=== PATIENT | female | born 1970 | race Caucasian/White ===

== ENCOUNTER 2018-01-28 19:27 | Inpatient (IN) | payer MEDICARE, MEDICAID ==
[~2018-01-28] VITALS: Ht 160 cm; Wt 85.0 kg
[2018-01-28] MEDS ORDERED: cloNIDine 0.2 mg/24hr 7DAY PATCH TD ONE (21:45)
[2018-01-28] MEDS ORDERED: ONDANSETRON HCL 4 MG/2 ML VIAL IV ONE (21:45)
[2018-01-28] MEDS ORDERED: FAMOTIDINE (10MG/ML) 2ML VL IV ONE (21:45)
[2018-01-28 21:58] LABS: INR 3.12 (0.9-1.15); Prothrombin Time 31.3 sec (9.27-12.13)
[2018-01-28] MEDS ORDERED: cloNIDine HCL 0.1 MG TAB PO ONE (22:00)
[2018-01-28 22:42] LABS: Calcium 8.5 mg/dL (8.5-10.1)
[2018-01-28 22:56] LABS: Basophils # (auto) 0.1 uL; Basophils % (auto) 0.7 % (0.0-2.0); Eosinophils # (auto) 0.1 uL; Eosinophils % (auto) 1.5 % (0.0-7.0); Hematocrit 35.3 % (36.0-46.0); Hemoglobin 12.1 g/dL (12.2-16.2); Lymphocytes # (auto) 1.4 uL; Lymphocytes % (auto) 13.9 % (10.0-50.0); Mean Corpuscular Hgb Conc. 34.3 g/dL (32.0-36.0); Mean Corpuscular Volume 90.4 fL (80.0-100.0); Monocytes # (auto) 0.7 uL; Monocytes % (auto) 7.2 % (0.0-12.0); Neutrophils # (auto) 7.8 uL; Neutrophils % (auto) 76.7 % (37.0-80.0); Nucleated Red Blood Cells % 0.1 %; Platelet Count (auto) 358 10^3/uL (140-450); Red Cell Distribution Width 14.7 % (11.8-14.3); White Blood Cell 10.1 10^3/uL (4.4-10.8)
[2018-01-28 23:03] LABS: Albumin 3.2 g/dL (3.4-5.0); Bilirubin, Total 0.6 mg/dL (0.2-1.0); Total Protein 7.2 g/dL (6.4-8.2)
[2018-01-29] VITALS (7 sets, daily range): BP systolic 126–152; BP diastolic 68–96
[2018-01-29] MEDS ORDERED: DEXTROSE (50%) 50ML SYRG IV PRN (02:45)
[2018-01-29] MEDS ORDERED: TEMAZEPAM 15 MG CAP PO PRN (03:00)
[2018-01-29 03:25] LABS: Urine Bacteria FEW /hpf (None Seen); Urine Blood TRACE /uL (Negative); Urine Specific Gravity 1.008 (1.001-1.035); Urine WBC 2 /hpf (0 - 5)
[2018-01-29] MEDS: InsuLIN REG 1unit/0.01ml Soln (100units/ml) SC SCH ×4 (06:00→23:50)
[2018-01-29] MEDS: ACCU-CHEK COMFORT CURVE STRIP VI SCH ×4 (06:10→23:36)
[2018-01-29] MEDS: PANTOPRAZOLE 40 MG TAB PO SCH (08:54)
[2018-01-29] MEDS ORDERED: WARFARIN SODIUM 2 MG TAB PO ONE (17:00)
[2018-01-29] MEDS: HYDROcodone-ACET 5/325MG TAB PO PRN (19:59)
[2018-01-29] MEDS: ONDANSETRON HCL 4 MG/2 ML VIAL IV PRN (23:37)
[2018-01-29] MEDS: cloNIDine HCL 0.1 MG TAB PO PRN (23:37)
[2018-01-30 05:44] VITALS: BP 124/69
[2018-01-30] MEDS: InsuLIN REG 1unit/0.01ml Soln (100units/ml) SC SCH ×4 (06:00→23:49)
[2018-01-30] MEDS: ACCU-CHEK COMFORT CURVE STRIP VI SCH ×4 (06:03→23:48)
[2018-01-30] MEDS: PANTOPRAZOLE 40 MG TAB PO SCH (06:18)
[2018-01-30] MEDS ORDERED: CLO01T PO (06:28)
[2018-01-30] MEDS ORDERED: AMLO10TA2 PO (06:28)
[2018-01-30] MEDS ORDERED: ATE50T PO (06:28)
[2018-01-30] MEDS ORDERED: WARF5TAB71 PO (06:28)
[2018-01-30] MEDS ORDERED: GEMF600T3 PO (06:28)
[2018-01-30] MEDS ORDERED: TRAM50TA2 PO (06:28)
[2018-01-30] MEDS ORDERED: LOSA100T27 PO (06:28)
[2018-01-30 06:43] LABS: Basophils # (auto) 0 uL; Basophils % (auto) 0.5 % (0.0-2.0); Eosinophils # (auto) 0.1 uL; Eosinophils % (auto) 1.5 % (0.0-7.0); Hematocrit 33.7 % (36.0-46.0); Hemoglobin 11.5 g/dL (12.2-16.2); Lymphocytes # (auto) 1.6 uL; Lymphocytes % (auto) 18.6 % (10.0-50.0); Mean Corpuscular Hemoglobin 30.5 pg (28.0-32.0); Mean Corpuscular Hgb Conc. 34.3 g/dL (32.0-36.0); Mean Corpuscular Volume 89.2 fL (80.0-100.0); Monocytes # (auto) 0.7 uL; Monocytes % (auto) 8.2 % (0.0-12.0); Neutrophils # (auto) 6.2 uL; Neutrophils % (auto) 71.2 % (37.0-80.0); Nucleated Red Blood Cells % 0.1 %; Platelet Count (auto) 308 10^3/uL (140-450); Red Blood Cells 3.77 10^6/uL (4.0-5.20); Red Cell Distribution Width 14.6 % (11.8-14.3); White Blood Cell 8.8 10^3/uL (4.4-10.8)
[2018-01-30 06:49] LABS: INR 1.61 (0.9-1.15); Prothrombin Time 16.8 sec (9.27-12.13)
[2018-01-30 07:14] LABS: BUN/Creatinine Ratio 7.4; Bilirubin, Total 1.7 mg/dL (0.2-1.0); Potassium 3.6 mmol/L (3.5-5.1); Total Protein 6.9 g/dL (6.4-8.2)
[2018-01-30 08:00] VITALS: BP 143/86
[2018-01-30 08:41] VITALS: BP 134/81
[2018-01-30] MEDS: ONDANSETRON HCL 4 MG/2 ML VIAL IV PRN (08:49)
[2018-01-30 12:37] VITALS: BP 128/76
[2018-01-30 17:00] VITALS: BP 150/78
[2018-01-30] MEDS ORDERED: WARFARIN SODIUM 2 MG TAB PO ONE (17:00)
[2018-01-30] MEDS: ACETAMINOPHEN 325 MG TAB PO PRN (19:39)
[2018-01-30 21:51] VITALS: BP 137/67
[2018-01-31 05:00] VITALS: BP 142/74
[2018-01-31] MEDS: InsuLIN REG 1unit/0.01ml Soln (100units/ml) SC SCH ×4 (06:00→23:32)
[2018-01-31] MEDS: ACCU-CHEK COMFORT CURVE STRIP VI SCH ×4 (06:08→23:31)
[2018-01-31] MEDS: PANTOPRAZOLE 40 MG TAB PO SCH (06:09)
[2018-01-31 07:20] LABS: INR 1.22 (0.9-1.15); Prothrombin Time 12.9 sec (9.27-12.13)
[2018-01-31 07:29] LABS: BUN/Creatinine Ratio 8.6; Calcium 8.6 mg/dL (8.5-10.1); Potassium 3.4 mmol/L (3.5-5.1)
[2018-01-31 07:47] LABS: Basophils # (auto) 0 uL; Basophils % (auto) 0.6 % (0.0-2.0); Eosinophils # (auto) 0.2 uL; Eosinophils % (auto) 2.8 % (0.0-7.0); Hematocrit 33.6 % (36.0-46.0); Hemoglobin 11.6 g/dL (12.2-16.2); Lymphocytes # (auto) 1.8 uL; Lymphocytes % (auto) 23.6 % (10.0-50.0); Mean Corpuscular Hemoglobin 31.2 pg (28.0-32.0); Mean Corpuscular Hgb Conc. 34.6 g/dL (32.0-36.0); Mean Corpuscular Volume 90.2 fL (80.0-100.0); Monocytes # (auto) 0.7 uL; Monocytes % (auto) 9.3 % (0.0-12.0); Neutrophils % (auto) 63.7 % (37.0-80.0); Nucleated Red Blood Cells % 0.1 %; Platelet Count (auto) 314 10^3/uL (140-450); Red Blood Cells 3.73 10^6/uL (4.0-5.20); Red Cell Distribution Width 14.2 % (11.8-14.3); White Blood Cell 7.9 10^3/uL (4.4-10.8)
[2018-01-31 08:00] VITALS: BP 143/86
[2018-01-31 09:00] VITALS: BP 162/75
[2018-01-31 13:00] VITALS: BP 152/94
[2018-01-31] MEDS: HYDROcodone-ACET 5/325MG TAB PO PRN (13:03)
[2018-01-31] MEDS ORDERED: LOSARTAN POTASSIUM 50 MG TAB PO ONE (14:00)
[2018-01-31] MEDS ORDERED: amLODIPine BESYLATE 5 MG TAB PO ONE (14:00)
[2018-01-31 17:00] VITALS: BP 154/80
[2018-01-31] MEDS ORDERED: WARFARIN SODIUM 5 MG TAB PO ONE (17:00)
[2018-01-31 18:49] LABS: Hepatitis C Antibody Negative (Negative)
[2018-01-31 18:50] LABS: Hepatitis B Surface Antigen Negative (Negative)
[2018-01-31] MEDS: cloNIDine HCL 0.1 MG TAB PO PRN (22:13)
[2018-02-01] VITALS (7 sets, daily range): BP systolic 121–156; BP diastolic 67–87
[2018-02-01] MEDS: ACCU-CHEK COMFORT CURVE STRIP VI SCH ×4 (05:36→23:25)
[2018-02-01] MEDS: InsuLIN REG 1unit/0.01ml Soln (100units/ml) SC SCH ×4 (05:37→23:25)
[2018-02-01 07:18] LABS: INR 1.25 (0.9-1.15); Prothrombin Time 13.2 sec (9.27-12.13)
[2018-02-01 07:23] LABS: Basophils # (auto) 0 uL; Basophils % (auto) 0.5 % (0.0-2.0); Eosinophils # (auto) 0.2 uL; Eosinophils % (auto) 2.6 % (0.0-7.0); Hematocrit 33.5 % (36.0-46.0); Hemoglobin 11.4 g/dL (12.2-16.2); Lymphocytes % (auto) 23.3 % (10.0-50.0); Mean Corpuscular Hemoglobin 30.8 pg (28.0-32.0); Mean Corpuscular Hgb Conc. 34.1 g/dL (32.0-36.0); Mean Corpuscular Volume 90.3 fL (80.0-100.0); Monocytes # (auto) 0.7 uL; Monocytes % (auto) 8.2 % (0.0-12.0); Neutrophils # (auto) 5.7 uL; Neutrophils % (auto) 65.4 % (37.0-80.0); Platelet Count (auto) 314 10^3/uL (140-450); Red Blood Cells 3.71 10^6/uL (4.0-5.20); Red Cell Distribution Width 14.3 % (11.8-14.3); White Blood Cell 8.7 10^3/uL (4.4-10.8)
[2018-02-01 07:37] LABS: Anion Gap 9 (5-15); BUN/Creatinine Ratio 9.4; Blood Urea Nitrogen 35 mg/dL (7-18); Calcium 8.4 mg/dL (8.5-10.1); Carbon Dioxide 24 mmol/L (21-32); Chloride 106 mmol/L (98-107); Cholesterol 245 mg/dL (< 200); GFR African American 17 mL/min; GFR Non-African American 14 mL/min; Glucose 127 mg/dL (74-106); HDL Cholesterol 31 mg/dL (40-59); Magnesium 2.6 mg/dL (1.6-2.6); Potassium 3.5 mmol/L (3.5-5.1); Sodium 139 mmol/L (136-145); Triglycerides 406 mg/dL (< 150)
[2018-02-01] MEDS: PANTOPRAZOLE 40 MG TAB PO SCH (08:27)
[2018-02-01] MEDS: cloNIDine HCL 0.1 MG TAB PO SCH (09:47)
[2018-02-01] MEDS: LOSARTAN POTASSIUM 50 MG TAB PO SCH (09:47)
[2018-02-01] MEDS: amLODIPine BESYLATE 5 MG TAB PO SCH (09:48)
[2018-02-01] MEDS ORDERED: HYDROcodone-ACET 5/325MG TAB PO PRN (10:00)
[2018-02-01] MEDS ORDERED: SODIUM CHL 0.9% 1000 ML BAG XX ONE (10:00)
[2018-02-01] MEDS ORDERED: WARFARIN SODIUM 2.5 MG TAB PO ONE (17:00)
[2018-02-01] MEDS: ACETAMINOPHEN 325 MG TAB PO PRN (21:02)
[2018-02-01] MEDS ORDERED: ATORVASTATIN 20 MG TAB PO SCH (22:00)
[2018-02-02] MEDS: cloNIDine HCL 0.1 MG TAB PO PRN (04:01)
[2018-02-02 05:17] VITALS: BP 157/78
[2018-02-02] MEDS: InsuLIN REG 1unit/0.01ml Soln (100units/ml) SC SCH ×2 (06:00→12:04)
[2018-02-02] MEDS: ACCU-CHEK COMFORT CURVE STRIP VI SCH ×2 (06:10→12:04)
[2018-02-02] MEDS: PANTOPRAZOLE 40 MG TAB PO SCH (06:52)
[2018-02-02 07:11] LABS: Basophils # (auto) 0 uL; Basophils % (auto) 0.5 % (0.0-2.0); Eosinophils # (auto) 0.2 uL; Eosinophils % (auto) 1.8 % (0.0-7.0); Hematocrit 34.7 % (36.0-46.0); Hemoglobin 11.9 g/dL (12.2-16.2); Lymphocytes # (auto) 1.8 uL; Lymphocytes % (auto) 19.7 % (10.0-50.0); Mean Corpuscular Hemoglobin 31.4 pg (28.0-32.0); Mean Corpuscular Hgb Conc. 34.4 g/dL (32.0-36.0); Mean Corpuscular Volume 91.2 fL (80.0-100.0); Monocytes # (auto) 0.8 uL; Monocytes % (auto) 8.2 % (0.0-12.0); Neutrophils # (auto) 6.4 uL; Neutrophils % (auto) 69.8 % (37.0-80.0); Nucleated Red Blood Cells % 0.1 %; Platelet Count (auto) 302 10^3/uL (140-450); Red Cell Distribution Width 14.6 % (11.8-14.3); White Blood Cell 9.2 10^3/uL (4.4-10.8)
[2018-02-02 07:14] LABS: INR 1.33 (0.9-1.15); Partial Thromboplastin Time 33.1 sec (23.78-33.04)
[2018-02-02 08:00] VITALS: BP 113/61
[2018-02-02 08:49] VITALS: BP 118/56
[2018-02-02] MEDS: amLODIPine BESYLATE 5 MG TAB PO SCH (08:55)
[2018-02-02] MEDS: LOSARTAN POTASSIUM 50 MG TAB PO SCH (10:00)
[2018-02-02] MEDS: cloNIDine HCL 0.1 MG TAB PO SCH (10:00)
[2018-02-02] MEDS ORDERED: TRAM50TA2 PO (10:41)
[2018-02-02 11:09] VITALS: BP 118/54
[2018-02-02 12:09] VITALS: BP 131/73
[2018-02-02] MEDS ORDERED: WARFARIN SODIUM 10 MG TAB PO ONE (17:00)
== END 2018-02-02 13:30 | disposition home or self-care (01) | DRG 682 ==
LOC: ER 19:27 → OVERFLOW 19:28 → EAST 01-29 04:00
PROVIDERS: ADMIT Nurse Practitioner; ATTEND Internal Medicine
PROC: 5A1D70Z Performance of Urinary Filtration, Intermittent, Less than 6 Hours Per Day (ICD-10-PCS; principal; 2018-01-29)
PROC: 5A1D70Z Performance of Urinary Filtration, Intermittent, Less than 6 Hours Per Day (ICD-10-PCS; 2018-02-01)
DX: I12.0 Hypertensive chronic kidney disease with stage 5 chronic kidney disease or end stage renal disease (principal); N18.6 End stage renal disease; E87.2 Acidosis; E11.65 Type 2 diabetes mellitus with hyperglycemia; D63.8 Anemia in other chronic diseases classified elsewhere; E11.22 Type 2 diabetes mellitus with diabetic chronic kidney disease; I25.10 Atherosclerotic heart disease of native coronary artery without angina pectoris; N20.0 Calculus of kidney; E66.9 Obesity, unspecified; Z82.49 Family history of ischemic heart disease and other diseases of the circulatory system; Z83.3 Family history of diabetes mellitus; Z86.711 Personal history of pulmonary embolism; Z90.49 Acquired absence of other specified parts of digestive tract; Z99.2 Dependence on renal dialysis; Z68.33 Body mass index [BMI] 33.0-33.9, adult; Z88.8 Allergy status to other drugs, medicaments and biological substances; Z95.828 Presence of other vascular implants and grafts; Z80.9 Family history of malignant neoplasm, unspecified
CPT/HCPCS: 36415; 71045; 74176; 80048; 80053; 80061; 81001; 82150; 82962; 83036; 83690; 83735; 83880; 85025; 85610; 85730; 86803; 87340; 90935; 93005; 94761; 96374; 96375; J1815; J2405; J3490

== ENCOUNTER 2018-02-22 05:23 | Inpatient (IN) | payer MEDICARE, MEDICAID ==
[~2018-02-22] VITALS: Ht 160 cm; Wt 83.9 kg
[~2018-02-22 05:23] MED LIST: AMLO10TA2 PO; ATE50T PO; CLO01T PO; GEMF600T3 PO; LOSA100T27 PO; TRAM50TA2 PO; WARF5TAB71 PO
[2018-02-22 11:09] LABS: Basophils # (auto) 0.1 uL; Basophils % (auto) 0.8 % (0.0-2.0); Eosinophils # (auto) 0.2 uL; Hematocrit 38.7 % (36.0-46.0); Hemoglobin 13.4 g/dL (12.2-16.2); Lymphocytes # (auto) 1.7 uL; Lymphocytes % (auto) 20.4 % (10.0-50.0); Mean Corpuscular Hemoglobin 31.3 pg (28.0-32.0); Mean Corpuscular Hgb Conc. 34.5 g/dL (32.0-36.0); Mean Corpuscular Volume 90.7 fL (80.0-100.0); Monocytes # (auto) 0.8 uL; Neutrophils # (auto) 5.5 uL; Neutrophils % (auto) 66.8 % (37.0-80.0); Nucleated Red Blood Cells % 0.1 %; Platelet Count (auto) 409 10^3/uL (140-450); Red Blood Cells 4.26 10^6/uL (4.0-5.20); Red Cell Distribution Width 14.3 % (11.8-14.3); White Blood Cell 8.2 10^3/uL (4.4-10.8)
[2018-02-22 11:29] LABS: Partial Thromboplastin Time 63.2 sec (23.78-33.04); Prothrombin Time 49.3 sec (9.27-12.13)
[2018-02-22 11:33] LABS: INR 5.05 (0.9-1.15)
[2018-02-22 11:36] LABS: Albumin 3.9 g/dL (3.4-5.0); BUN/Creatinine Ratio 5.3; Calcium 9.1 mg/dL (8.5-10.1); Potassium 4.5 mmol/L (3.5-5.1); Total Protein 8.4 g/dL (6.4-8.2)
[2018-02-22] MEDS ORDERED: DEXTROSE (50%) 50ML SYRG IV PRN (14:30)
[2018-02-22] MEDS ORDERED: MORPHINE SULF INJ 2 MG/ML SYRINGE 1ML IV PRN (14:30)
[2018-02-22] MEDS ORDERED: AZELASTINE 0.1% NASAL SPRAY PRN (14:30)
[2018-02-22] MEDS ORDERED: ACETAMINOPHEN 325 MG TAB PO PRN (14:30)
[2018-02-22] MEDS ORDERED: ONDANSETRON HCL 4 MG/2 ML VIAL IV PRN (14:30)
[2018-02-22] MEDS ORDERED: cloNIDine HCL 0.1 MG TAB PO PRN (14:30)
[2018-02-22] MEDS ORDERED: NITROGLYCERIN 0.4 MG SL TAB SL PRN (14:30)
[2018-02-22] MEDS ORDERED: DOCUSATE SOD 100 MG CAP PO PRN (14:30)
[2018-02-22] MEDS ORDERED: HYDROcodone-ACET 5/325MG TAB PO PRN (14:30)
[2018-02-22] MEDS ORDERED: TEMAZEPAM 15 MG CAP PO PRN (14:30)
[2018-02-22] MEDS ORDERED: traMADol HCL 50 MG TAB PO PRN (14:30)
[2018-02-22] MEDS: FAMOTIDINE 20 MG TAB PO SCH (15:25)
[2018-02-22 16:04] LABS: Urine Bacteria FEW /hpf (None Seen); Urine Blood TRACE /uL (Negative); Urine Specific Gravity 1.009 (1.001-1.035); Urine WBC 2 /hpf (0 - 5)
[2018-02-22] MEDS ORDERED: GEMFIBROZIL 600 MG TAB PO SCH (17:00)
[2018-02-22] MEDS: ACCU-CHEK COMFORT CURVE STRIP VI SCH ×2 (18:00→21:22)
[2018-02-22] MEDS: InsuLIN REG 1unit/0.01ml Soln (100units/ml) SC SCH ×2 (18:11→23:09)
[2018-02-22 20:35] VITALS: BP 144/80
[2018-02-22] MEDS: cloNIDine HCL 0.1 MG TAB PO SCH (21:21)
[2018-02-22] MEDS ORDERED: FAMOTIDINE 20 MG TAB PO SCH (22:00)
[2018-02-22] MEDS: SODIUM CHLOR 0.9% PF (SALINE LOCK) 10ML VIAL/SYR IV SCH (23:10)
[2018-02-23 06:08] VITALS: BP_SYST 105; BP_SYST 150; BP_DIAS 70
[2018-02-23] MEDS: InsuLIN REG 1unit/0.01ml Soln (100units/ml) SC SCH ×2 (06:33→12:49)
[2018-02-23] MEDS: SODIUM CHLOR 0.9% PF (SALINE LOCK) 10ML VIAL/SYR IV SCH ×2 (06:33→14:00)
[2018-02-23] MEDS: ACCU-CHEK COMFORT CURVE STRIP VI SCH ×2 (06:33→12:49)
[2018-02-23 08:00] VITALS: BP 125/78
[2018-02-23 08:04] LABS: Basophils # (auto) 0.1 uL; Basophils % (auto) 0.7 % (0.0-2.0); Eosinophils # (auto) 0.2 uL; Eosinophils % (auto) 2.4 % (0.0-7.0); Hematocrit 33.4 % (36.0-46.0); Hemoglobin 11.1 g/dL (12.2-16.2); Lymphocytes # (auto) 1.7 uL; Lymphocytes % (auto) 20.9 % (10.0-50.0); Mean Corpuscular Hemoglobin 30.2 pg (28.0-32.0); Mean Corpuscular Hgb Conc. 33.3 g/dL (32.0-36.0); Mean Corpuscular Volume 90.6 fL (80.0-100.0); Monocytes # (auto) 0.8 uL; Neutrophils # (auto) 5.6 uL; Platelet Count (auto) 342 10^3/uL (140-450); Red Blood Cells 3.69 10^6/uL (4.0-5.20); Red Cell Distribution Width 13.8 % (11.8-14.3); White Blood Cell 8.3 10^3/uL (4.4-10.8)
[2018-02-23 08:19] LABS: INR 3.69 (0.9-1.15); Prothrombin Time 36.7 sec (9.27-12.13)
[2018-02-23 08:29] LABS: Albumin 3.5 g/dL (3.4-5.0); BUN/Creatinine Ratio 6.6; Bilirubin, Total 0.9 mg/dL (0.2-1.0); Calcium 8.7 mg/dL (8.5-10.1); Potassium 4.2 mmol/L (3.5-5.1); Total Protein 7.1 g/dL (6.4-8.2)
[2018-02-23] MEDS ORDERED: ATENOLOL 50 MG TAB PO SCH (10:00)
[2018-02-23] MEDS: cloNIDine HCL 0.1 MG TAB PO SCH (10:00)
[2018-02-23] MEDS ORDERED: amLODIPine BESYLATE 5 MG TAB PO SCH (10:00)
[2018-02-23] MEDS ORDERED: LOSARTAN POTASSIUM 50 MG TAB PO SCH (10:00)
[2018-02-23] MEDS ORDERED: MULTIPLE VITAMIN TAB PO SCH (10:00)
[2018-02-23] MEDS ORDERED: FUROSEMIDE 40 MG TAB PO SCH (10:00)
[2018-02-23] MEDS: FAMOTIDINE 20 MG TAB PO SCH (10:03)
[2018-02-23 12:23] VITALS: BP 112/72
== END 2018-02-23 15:15 | disposition home or self-care (01) | DRG 314 ==
LOC: EDBD 05:23 → ER 05:28 → TELE 05:29 → TELE-WESTW 20:35
PROVIDERS: ADMIT Internal Medicine; ATTEND Internal Medicine
DX: T82.838A Hemorrhage due to vascular prosthetic devices, implants and grafts, initial encounter (principal); N18.6 End stage renal disease; E87.1 Hypo-osmolality and hyponatremia; I12.0 Hypertensive chronic kidney disease with stage 5 chronic kidney disease or end stage renal disease; T45.515A Adverse effect of anticoagulants, initial encounter; Y84.1 Kidney dialysis as the cause of abnormal reaction of the patient, or of later complication, without mention of misadventure at the time of the procedure; E11.21 Type 2 diabetes mellitus with diabetic nephropathy; E66.9 Obesity, unspecified; E11.22 Type 2 diabetes mellitus with diabetic chronic kidney disease; Y92.89 Other specified places as the place of occurrence of the external cause; Z82.49 Family history of ischemic heart disease and other diseases of the circulatory system; Z83.3 Family history of diabetes mellitus; Z86.711 Personal history of pulmonary embolism; Z99.2 Dependence on renal dialysis; Z90.49 Acquired absence of other specified parts of digestive tract; Z88.8 Allergy status to other drugs, medicaments and biological substances; Z79.899 Other long term (current) drug therapy; Z68.32 Body mass index [BMI] 32.0-32.9, adult
CPT/HCPCS: 36415; 71046; 80053; 81001; 82705; 82784; 82962; 83036; 83516; 83880; 84443; 84484; 85025; 85610; 85730; 86255; 87045; 87081; 87086; 87493; 87899; 93306; J1815